=== PATIENT | male | born 1990 | race Asian ===

== ENCOUNTER 2016-11-24 10:06 | Emergency (ER) | payer OTHER ==
[~2016-11-24] VITALS: Ht 170.2 cm; Wt 80.7 kg
[2016-11-24 11:24] VITALS: BP 117/74
== END 2016-11-24 11:24 | disposition home or self-care (01) ==
LOC: ED 10:06
DX: H10.11 Acute atopic conjunctivitis, right eye (principal); M41.9 Scoliosis, unspecified; Z88.6 Allergy status to analgesic agent